=== PATIENT | female | born 1990 | race American Indian/Alaskan Native ===

== ENCOUNTER 2019-02-16 23:27 | Emergency (ER) | payer SELFPAY ==
[2019-02-17 01:29] VITALS: BP 115/65
[2019-02-17] MEDS ORDERED: ACETAMINOPHEN 325 MG TAB PO ONE (01:37)
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
== END 2019-02-17 02:20 | disposition home or self-care (01) ==
LOC: ED 23:27
DX: S80.12XA Contusion of left lower leg, initial encounter (principal); J45.909 Unspecified asthma, uncomplicated; Z79.899 Other long term (current) drug therapy; V49.49XA Driver injured in collision with other motor vehicles in traffic accident, initial encounter; Y93.89 Activity, other specified; Y92.410 Unspecified street and highway as the place of occurrence of the external cause; Y99.8 Other external cause status